=== PATIENT | male | born 1975 | race African-American/Black ===

== ENCOUNTER 2022-06-29 12:28 | Emergency (ER) | payer MEDICAID, OTHER ==
[2022-06-29] MEDS ORDERED: Ketorolac 60 MG/2 ML SDV IM ONE (12:49)
[2022-06-29] MEDS ORDERED: methylPREDNISolone Sodium Succinate 125 MG/2 ML SDV IM ONE (12:49)
== END 2022-06-29 13:57 | disposition home or self-care (01) ==
LOC: MW.ED 12:28
DX: M54.40 Lumbago with sciatica, unspecified side (principal); Z79.899 Other long term (current) drug therapy
CPT/HCPCS: 72100; 96372; 99283; J1885; J2930

== ENCOUNTER 2022-08-05 17:55 | Emergency (ER) | payer MEDICAID ==
[2022-08-05] MEDS ORDERED: Orphenadrine 60 MG/2 ML Inj IM ONE (18:55)
[2022-08-05] MEDS ORDERED: Ketorolac 60 MG/2 ML SDV IM ONE (18:55)
[2022-08-05] MEDS ORDERED: Lidocaine 4% 1 each Patch TOP STA (19:01)
== END 2022-08-05 19:34 | disposition home or self-care (01) ==
LOC: MW.ED 17:55
DX: G89.29 Other chronic pain (principal); M54.50 Low back pain, unspecified; F17.210 Nicotine dependence, cigarettes, uncomplicated
CPT/HCPCS: 96372; 99283; A9270; J1885